=== PATIENT | female | born 1960 | race American Indian/Alaskan Native ===

== ENCOUNTER 2018-11-29 06:50 | Observation (INO) | payer MEDICAID, OTHER ==
--- NOTE | 2018-11-29 07:14 | EDM.PDOC ---
<Adina James - Last Filed: 11/29/18 10:08> ED HPI GENERAL MEDICAL PROBLEM - General Chief Complaint: Abdominal Pain Stated Complaint: AMBULANCE-UNKNOWN Time Seen by Provider: 11/29/18 07:00 Source of Information: Reports: Patient History Limitations: Reports: No Limitations - History of Present Illness INITIAL COMMENTS - FREE TEXT/NARRATIVE: Patient presents to ER with CC of generalized abdominal pain and left flank pain. Patient states that this pain began last night, "vomited all night". Patient reports history of cholecystectomy in 2016. Patient additionally reports that she last had a UTI "many years ago" and denies history of renal stones. Patient reports history of urinary frequency, dysuria, and only being able to void small amounts at a time, also reports feeling chilled at this time. Denies history of hematuria, fever at home. Onset Date: 11/28/18 Location: Reports: Abdomen (generalized throughout), Back (left flank pain) Quality: Reports: Sharp Severity: Severe Worsens with: Reports: Movement Associated Symptoms: Reports: Nausea/Vomiting Abdomen Pain Score (Numeric/FACES): 10 - Related Data Allergies Allergy/AdvReac Type Severity Reaction Status Date / Time dextrose [From Metamucil] Allergy Respiratory Verified 11/29/18 06:50 Distress psyllium husk Allergy Respiratory Verified 11/29/18 06:50 [From Metamucil] Distress psyllium seed Allergy Respiratory Verified 11/29/18 06:50 [From Metamucil] Distress sucrose [From Metamucil] Allergy Respiratory Verified 11/29/18 06:50 Distress Home Meds: Home Meds Cholecalciferol (Vitamin D3) [Vitamin D3] 1,000 units PO DAILY 12/28/13 [History ] Docusate Sodium [Colace] 50 mg PO DAILY 12/28/13 [History] traMADol [Ultram] 100 mg PO TID 12/28/13 [History] Gabapentin [Neurontin] 100 mg PO TID 08/27/15 [History] Past Medical History HEENT History: Reports: Impaired Vision Other HEENT History: wears glasses Cardiovascular History: Reports: None Respiratory History: Reports: None Gastrointestinal History: Reports: GERD Genitourinary History: Reports: None [employer]ACHINE History: Reports: None Musculoskeletal History: Reports: Back Pain, Chronic, Osteoarthritis Neurological History: Reports: None Psychiatric History: Reports: None Endocrine/Metabolic History: Reports: None Hematologic History: Reports: None Immunologic History: Reports: None Oncologic (Cancer) History: Reports: None Dermatologic History: Reports: None - Infectious Disease History Infectious Disease History: Reports: None - Past Surgical History Head Surgeries/Procedures: Reports: None Female Surgical History: Reports: Hysterectomy Other Female Surgeries/Procedures: bladder surgery Social & Family History - Family History Family Medical History: Noncontributory - Tobacco Use Smoking Status *Q: Never Smoker - Caffeine Use Caffeine Use: Reports: Coffee - Recreational Drug Use Recreational Drug Use: No - Living Situation & Occupation Living situation: Reports: , with Spouse ED ROS GENERAL - Review of Systems Review Of Systems: ROS reveals no pertinent complaints other than HPI. ED EXAM, RENAL/ - Physical Exam Exam: See Below Exam Limited By: No Limitations General Appearance: Alert, WD/WN, No Apparent Distress Throat/Mouth: Normal Inspection, Normal Lips, Normal Teeth, Normal Gums, Normal Oropharynx, Normal Voice, No Airway Compromise Head: Atraumatic, Normocephalic Neck: Normal Inspection, Supple, Non-Tender, Full Range of Motion Respiratory/Chest: No Respiratory Distress, Lungs Clear, Normal Breath Sounds, No Accessory Muscle Use, Chest Non-Tender Cardiovascular: Normal Peripheral Pulses, Regular Rate, Rhythm, No Edema, No Gallop, No JVD, No Murmur, No Rub GI/Abdominal: Normal Bowel Sounds, Soft, No Organomegaly, No Distention, No Abnormal Bruit, No Mass, Tender (tenderness to generalized abdomen with palpation ) Back Exam: Normal Inspection, Full Range of Motion, CVA Tenderness (L) Extremities: Normal Inspection, Normal Range of Motion, Non-Tender, Normal Capillary Refill, No Pedal Edema Neurological: Alert, Oriented, CN II-XII Intact, Normal Cognition, Normal Gait, Normal Reflexes, No Motor/Sensory Deficits Psychiatric: Anxious Skin Exam: Warm, Dry, Intact, Normal Color, No Rash Course - Vital Signs Last Recorded V/S: Last Vital Signs Temp 97.9 F 11/29/18 06:50 Pulse Resp 18 11/29/18 06:50 BP 120/63 11/29/18 06:50 Pulse Ox 99 11/29/18 06:50 - Orders/Labs/Meds Orders: Active Orders 24 hr Category Date Time Status EKG Documentation Completion [RC] URGENT Care 11/29/18 06:33 Inactive Abdomen Pelvis wo Cont [CT] Urgent Exams 11/29/18 08:57 Taken CULTURE BLOOD [BC] Stat Lab 11/29/18 06:55 Received CULTURE BLOOD [BC] Stat Lab 11/29/18 07:00 Received Blood Culture x2 Reflex Set [OM.PC] Stat Oth 11/29/18 06:33 Ordered Labs: Laboratory Tests 11/29/18 11/29/18 11/29/18 Range/Units 06:55 07:00 07:00 WBC 16.4 H (5.0-10.0) 10^3/uL RBC 5.62 H (4.2-5.4) 10^6/uL Hgb 17.1 H D (12.0-16.0) g/dL Hct 49.3 H (37.0-47.0) % MCV 87.7 (80-100) fL MCH 30.4 (27.0-34.0) pg MCHC 34.7 (33.0-35.0) g/dL Plt Count 302 (150-450) 10^3/uL Neut % (Auto) 91.3 H (42.2-75.2) % Lymph % (Auto) 6.0 L (20.5-50.1) % [place] % (Auto) 2.3 (2-8) % Eos % (Auto) 0.3 L (1.0-3.0) % Baso % (Auto) 0.1 (0.0-1.0) % Sodium 139 (135-145) mmol/L Potassium 3.6 (3.6-5.0) mmol/L Chloride 106 (101-111) mmol/L Carbon Dioxide 21.0 (21.0-31.0) mmol/L Anion Gap 15.6 BUN 18 (7-18) mg/dL Creatinine 0.6 (0.6-1.3) mg/dL Est Cr Clr Drug Dosing 94.51 mL/min Estimated GFR (MDRD) > 60 BUN/Creatinine Ratio 30.00 Glucose 160 H (74-105) mg/dL Lactic Acid 1.2 (0.5-2.2) mmol/L Calcium 10.2 (8.4-10.2) mg/dl Total Bilirubin 1.0 (0.2-1.0) mg/dL AST 48 H (10-42) IU/L ALT 52 (10-60) IU/L Alkaline Phosphatase 91 (42-121) IU/L Troponin I < 0.02 (0.00-0.02) ng/ml Total Protein 9.0 H (6.7-8.2) g/dl Albumin 5.1 (3.2-5.5) g/dl Globulin 3.9 Albumin/Globulin Ratio 1.31 Amylase 62 (28-100) U/L Lipase 34 (22-51) U/L Urine Color (YELLOW) Urine Appearance (CLEAR) Urine pH (5.0-9.0) Ur Specific [place] (1.005-1.030) Urine Protein (NEGATIVE) Urine Glucose (UA) (NEGATIVE) Urine Ketones (NEGATIVE) Urine Occult Blood (NEGATIVE) Urine Nitrite (NEGATIVE) Urine Bilirubin (NEGATIVE) Urine Urobilinogen (0.2-1.0) mg/dL Ur Leukocyte Esterase (NEGATIVE) Urine RBC /HPF Urine WBC (0-5/HPF) /HPF Ur Epithelial Cells (NOT SEEN) /HPF Amorphous Sediment (NOT SEEN) /HPF Urine Bacteria (0-FEW/HPF) /HPF Hyaline Casts (NOT SEEN) /LPF Urine Mucus (NOT SEEN) /LPF Urine Opiates Screen (NEGATIVE) Ur Oxycodone Screen (NEGATIVE) Urine Methadone Screen (NEGATIVE) Ur Barbiturates Screen (NEGATIVE) U Tricyclic Antidepress (NEGATIVE) Ur Phencyclidine Scrn (NEGATIVE) Ur Amphetamine Screen (NEGATIVE) U Methamphetamines Scrn (NEGATIVE) Urine MDMA Screen (NEGATIVE) U Benzodiazepines Scrn (NEGATIVE) Urine Cocaine Screen (NEGATIVE) U Marijuana (THC) Screen (NEGATIVE) 11/29/18 11/29/18 Range/Units 08:19 08:19 WBC (5.0-10.0) 10^3/uL RBC (4.2-5.4) 10^6/uL Hgb (12.0-16.0) g/dL Hct (37.0-47.0) % MCV (80-100) fL MCH (27.0-34.0) pg MCHC (33.0-35.0) g/dL Plt Count (150-450) 10^3/uL Neut % (Auto) (42.2-75.2) % Lymph % (Auto) (20.5-50.1) % [place] % (Auto) (2-8) % Eos % (Auto) (1.0-3.0) % Baso % (Auto) (0.0-1.0) % Sodium (135-145) mmol/L Potassium (3.6-5.0) mmol/L Chloride (101-111) mmol/L Carbon Dioxide (21.0-31.0) mmol/L Anion Gap BUN (7-18) mg/dL Creatinine (0.6-1.3) mg/dL Est Cr Clr Drug Dosing mL/min Estimated GFR (MDRD) BUN/Creatinine Ratio Glucose (74-105) mg/dL Lactic Acid (0.5-2.2) mmol/L Calcium (8.4-10.2) mg/dl Total Bilirubin (0.2-1.0) mg/dL AST (10-42) IU/L ALT (10-60) IU/L Alkaline Phosphatase (42-121) IU/L Troponin I (0.00-0.02) ng/ml Total Protein (6.7-8.2) g/dl Albumin (3.2-5.5) g/dl Globulin Albumin/Globulin Ratio Amylase (28-100) U/L Lipase (22-51) U/L Urine Color Dark yellow (YELLOW) Urine Appearance Cloudy (CLEAR) Urine pH 6.0 (5.0-9.0) Ur Specific [place] 1.025 (1.005-1.030) Urine Protein 100 H (NEGATIVE) Urine Glucose (UA) Negative (NEGATIVE) Urine Ketones >=160 H (NEGATIVE) Urine Occult Blood Moderate H (NEGATIVE) Urine Nitrite Negative (NEGATIVE) Urine Bilirubin Small H (NEGATIVE) Urine Urobilinogen 0.2 (0.2-1.0) mg/dL Ur Leukocyte Esterase Negative (NEGATIVE) Urine RBC 50-75 H /HPF Urine WBC 0-5 (0-5/HPF) /HPF Ur Epithelial Cells Moderate H (NOT SEEN) /HPF Amorphous Sediment Few (NOT SEEN) /HPF Urine Bacteria Rare (0-FEW/HPF) /HPF Hyaline Casts Rare H (NOT SEEN) /LPF Urine Mucus Many H (NOT SEEN) /LPF Urine Opiates Screen Negative (NEGATIVE) Ur Oxycodone Screen Negative (NEGATIVE) Urine Methadone Screen Negative (NEGATIVE) Ur Barbiturates Screen Negative (NEGATIVE) U Tricyclic Antidepress Negative (NEGATIVE) Ur Phencyclidine Scrn Negative (NEGATIVE) Ur Amphetamine Screen Negative (NEGATIVE) U Methamphetamines Scrn Negative (NEGATIVE) Urine MDMA Screen Negative (NEGATIVE) U Benzodiazepines Scrn Negative (NEGATIVE) Urine Cocaine Screen Negative (NEGATIVE) U Marijuana (THC) Screen Negative (NEGATIVE) Meds: Medications Discontinued Medications Generic Name Dose Route Start Last Admin Trade Name Freq PRN Reason Stop Dose Admin Famotidine 20 mg 11/29/18 07:15 11/29/18 07:19 Pepcid IVPUSH 11/29/18 07:16 20 mg ONETIME ONE Administration Hydromorphone HCl 1 mg 11/29/18 08:36 11/29/18 10:09 Dilaudid IVPUSH 11/29/18 08:37 1 mg ONETIME ONE Administration Sodium Chloride 1,000 mls @ 999 mls/hr 11/29/18 07:19 11/29/18 07:21 Normal Saline IV 11/29/18 08:19 999 mls/hr .BOLUS ONE Administration Ketorolac Tromethamine 30 mg 11/29/18 07:15 11/29/18 07:19 Toradol IVPUSH 11/29/18 07:16 30 mg ONETIME ONE Administration - Re-Assessments/Exams Free Text/Narrative Re-Assessment/Exam: Patient experienced no active vomiting throughout ER course, no NG tube was placed. Patient has remained NPO throughout ER visit. Dr. Cardoza consulted on this patient's case, willing to consult on patient case. Accepting hospitalist, Dr. Rivera, is aware of patient microscopic hematuria. Departure - Departure Time of Disposition: 10:08 Disposition: Admitted As Inpatient 65 Condition: Good Clinical Impression: Partial small bowel obstruction Hematuria Qualifiers: Hematuria type: asymptomatic microscopic Qualified Code(s): R31.21 - Asymptomatic microscopic hematuria - Discharge Information *PRESCRIPTION DRUG MONITORING PROGRAM REVIEWED*: No *COPY OF PRESCRIPTION DRUG MONITORING REPORT IN PATIENT VELASQUEZ: No Instructions: Small Bowel Obstruction, [id number] Forms: ED Department Discharge <Td Dawson - Last Filed: 11/29/18 10:18> Course - Re-Assessments/Exams Free Text/Narrative Re-Assessment/Exam: 11/29/18 09:04 I personally performed or re-performed the physical examination and medical decision making. I have verified all student documentation or findings, including history, physical exam and/or medical decision making. Departure - Departure Time of Disposition: 10:18 (admitted to Dr. Rivera)
[2018-11-29] MEDS ORDERED: Famotidine 20 MG/2 ML SDV IVPUSH ONE (07:15)
[2018-11-29] MEDS ORDERED: Ketorolac 30 MG/ML SDV IVPUSH ONE (07:15)
[2018-11-29] MEDS ORDERED: Sodium Chloride 0.9% 1,000 ML IV ONE (07:19)
[2018-11-29 07:28] LABS: ANION GAP 15.6; CHLORIDE,CL 106 mmol/L (101-111); SODIUM,NA 139 mmol/L (135-145)
[2018-11-29] MEDS ORDERED: HYDROmorphone 1 MG/ML Syringe IVPUSH ONE (08:36)
[2018-11-29] MEDS ORDERED: Sodium Chloride 0.9% 10 ML Syringe FLUSH PRN ×2 (10:42)
[2018-11-29] MEDS ORDERED: Ondansetron 4 MG/2 ML SDV IV PRN (10:45)
--- NOTE | 2018-11-29 11:11 | PCM.HP ---
H&P History of Present Illness - General Date of Service: 11/29/18 Admit Problem/Dx: Admission Diagnosis/Problem Admission Diagnosis/Problem Small bowel obstruction Source of Information: Patient History Limitations: Reports: No Limitations - History of Present Illness Initial Comments - Free Text/Narative: 58 yo F who p/w abdominal pain, nausea and vomiting. Abdominal pain started at about 8 pm last night, 8/10 intensity, colicky, intermittent, diffuse over whole abdomen with radiation into back. Associated with several episodes of nausea and vomiting. Hx of cholecystectomy in the past. In the ED, CT abd showed SBO. Abdomen Pain Score (Numeric/FACES): 10 - Related Data Allergies/Adverse Reactions: Allergies Allergy/AdvReac Type Severity Reaction Status Date / Time dextrose [From Metamucil] Allergy Respiratory Verified 11/29/18 10:53 Distress psyllium husk Allergy Respiratory Verified 11/29/18 10:53 [From Metamucil] Distress psyllium seed Allergy Respiratory Verified 11/29/18 10:53 [From Metamucil] Distress sucrose [From Metamucil] Allergy Respiratory Verified 11/29/18 10:53 Distress Home Medications: Home Meds Cholecalciferol (Vitamin D3) [Vitamin D3] 1,000 units PO DAILY 12/28/13 [History ] Docusate Sodium [Colace] 50 mg PO DAILY 12/28/13 [History] traMADol [Ultram] 100 mg PO TID 12/28/13 [History] Acetaminophen 325 mg PO Q4H PRN 11/29/18 [History] Past Medical History HEENT History: Reports: Impaired Vision Other HEENT History: wears glasses Cardiovascular History: Reports: None Respiratory History: Reports: None Gastrointestinal History: Reports: GERD Genitourinary History: Reports: None [employer] 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 Musculoskeletal History: Reports: Back Pain, Chronic, Osteoarthritis Neurological History: Reports: None Psychiatric History: Reports: None Endocrine/Metabolic History: Reports: None Hematologic History: Reports: None Immunologic History: Reports: None Oncologic (Cancer) History: Reports: None Dermatologic History: Reports: None - Infectious Disease History Infectious Disease History: Reports: None - Past Surgical History Head Surgeries/Procedures: Reports: None HEENT Surgical History: Reports: None Cardiovascular Surgical History: Reports: None Respiratory Surgical History: Reports: None GI Surgical History: Reports: Cholecystectomy Female Surgical History: Reports: Hysterectomy Other Female Surgeries/Procedures: bladder surgery Neurological Surgical History: Reports: None Musculoskeletal Surgical History: Reports: None Social & Family History - Family History Family Medical History: Noncontributory - Tobacco Use Smoking Status *Q: Never Smoker - Caffeine Use Caffeine Use: Reports: Coffee - Recreational Drug Use Recreational Drug Use: No - Living Situation & Occupation Living situation: Reports: , with Spouse H&P Review of Systems - Review of Systems: Review Of Systems: ROS reveals no pertinent complaints other than HPI. General: Denies: Fever HEENT: Reports: No Symptoms Pulmonary: Reports: No Symptoms Cardiovascular: Reports: No Symptoms Gastrointestinal: Reports: Abdominal Pain, Nausea, Vomiting Genitourinary: Reports: No Symptoms Musculoskeletal: Reports: No Symptoms Skin: Reports: No Symptoms Psychiatric: Reports: No Symptoms Neurological: Reports: No Symptoms Exam - Exam Exam: See Below - Vital Signs Vital Signs: Last Vital Signs Temp 37.5 C 11/29/18 10:29 Pulse 88 11/29/18 10:29 Resp 20 11/29/18 10:29 BP 127/71 11/29/18 10:29 Pulse Ox 97 11/29/18 10:29 Weight: 75.387 kg - Exam General: Alert, Oriented HEENT: Conjunctiva Clear Neck: Supple, Trachea Midline Lungs: Clear to Auscultation Cardiovascular: Regular Rate, Regular Rhythm GI/Abdominal Exam: Tender, Other (hypoactive bowel sounds, diffusely tender abdomen) Extremities: Normal Inspection, Normal Range of Motion Neuro Extensive - Mental Status: Alert, Oriented x3, Normal Mood/Affect - Patient Data Lab Results Last 24 hrs: Laboratory Results - last 24 hr 11/29/18 11/29/18 11/29/18 Range/Units 06:55 07:00 07:00 WBC 16.4 H (5.0-10.0) 10^3/uL RBC 5.62 H (4.2-5.4) 10^6/uL Hgb 17.1 H D (12.0-16.0) g/dL Hct 49.3 H (37.0-47.0) % MCV 87.7 (80-100) fL MCH 30.4 (27.0-34.0) pg MCHC 34.7 (33.0-35.0) g/dL Plt Count 302 (150-450) 10^3/uL Neut % (Auto) 91.3 H (42.2-75.2) % Lymph % (Auto) 6.0 L (20.5-50.1) % [place] % (Auto) 2.3 (2-8) % Eos % (Auto) 0.3 L (1.0-3.0) % Baso % (Auto) 0.1 (0.0-1.0) % Sodium 139 (135-145) mmol/L Potassium 3.6 (3.6-5.0) mmol/L Chloride 106 (101-111) mmol/L Carbon Dioxide 21.0 (21.0-31.0) mmol/L Anion Gap 15.6 BUN 18 (7-18) mg/dL Creatinine 0.6 (0.6-1.3) mg/dL Est Cr Clr Drug Dosing 94.51 mL/min Estimated GFR (MDRD) > 60 BUN/Creatinine Ratio 30.00 Glucose 160 H (74-105) mg/dL Lactic Acid 1.2 (0.5-2.2) mmol/L Calcium 10.2 (8.4-10.2) mg/dl Total Bilirubin 1.0 (0.2-1.0) mg/dL AST 48 H (10-42) IU/L ALT 52 (10-60) IU/L Alkaline Phosphatase 91 (42-121) IU/L Troponin I < 0.02 (0.00-0.02) ng/ml Total Protein 9.0 H (6.7-8.2) g/dl Albumin 5.1 (3.2-5.5) g/dl Globulin 3.9 Albumin/Globulin Ratio 1.31 Amylase 62 (28-100) U/L Lipase 34 (22-51) U/L Urine Color (YELLOW) Urine Appearance (CLEAR) Urine pH (5.0-9.0) Ur Specific [place] (1.005-1.030) Urine Protein (NEGATIVE) Urine Glucose (UA) (NEGATIVE) Urine Ketones (NEGATIVE) Urine Occult Blood (NEGATIVE) Urine Nitrite (NEGATIVE) Urine Bilirubin (NEGATIVE) Urine Urobilinogen (0.2-1.0) mg/dL Ur Leukocyte Esterase (NEGATIVE) Urine RBC /HPF Urine WBC (0-5/HPF) /HPF Ur Epithelial Cells (NOT SEEN) /HPF Amorphous Sediment (NOT SEEN) /HPF Urine Bacteria (0-FEW/HPF) /HPF Hyaline Casts (NOT SEEN) /LPF Urine Mucus (NOT SEEN) /LPF Urine Opiates Screen (NEGATIVE) Ur Oxycodone Screen (NEGATIVE) Urine Methadone Screen (NEGATIVE) Ur Barbiturates Screen (NEGATIVE) U Tricyclic Antidepress (NEGATIVE) Ur Phencyclidine Scrn (NEGATIVE) Ur Amphetamine Screen (NEGATIVE) U Methamphetamines Scrn (NEGATIVE) Urine MDMA Screen (NEGATIVE) U Benzodiazepines Scrn (NEGATIVE) Urine Cocaine Screen (NEGATIVE) U Marijuana (THC) Screen (NEGATIVE) 11/29/18 11/29/18 Range/Units 08:19 08:19 WBC (5.0-10.0) 10^3/uL RBC (4.2-5.4) 10^6/uL Hgb (12.0-16.0) g/dL Hct (37.0-47.0) % MCV (80-100) fL MCH (27.0-34.0) pg MCHC (33.0-35.0) g/dL Plt Count (150-450) 10^3/uL Neut % (Auto) (42.2-75.2) % Lymph % (Auto) (20.5-50.1) % [place] % (Auto) (2-8) % Eos % (Auto) (1.0-3.0) % Baso % (Auto) (0.0-1.0) % Sodium (135-145) mmol/L Potassium (3.6-5.0) mmol/L Chloride (101-111) mmol/L Carbon Dioxide (21.0-31.0) mmol/L Anion Gap BUN (7-18) mg/dL Creatinine (0.6-1.3) mg/dL Est Cr Clr Drug Dosing mL/min Estimated GFR (MDRD) BUN/Creatinine Ratio Glucose (74-105) mg/dL Lactic Acid (0.5-2.2) mmol/L Calcium (8.4-10.2) mg/dl Total Bilirubin (0.2-1.0) mg/dL AST (10-42) IU/L ALT (10-60) IU/L Alkaline Phosphatase (42-121) IU/L Troponin I (0.00-0.02) ng/ml Total Protein (6.7-8.2) g/dl Albumin (3.2-5.5) g/dl Globulin Albumin/Globulin Ratio Amylase (28-100) U/L Lipase (22-51) U/L Urine Color Dark yellow (YELLOW) Urine Appearance Cloudy (CLEAR) Urine pH 6.0 (5.0-9.0) Ur Specific [place] 1.025 (1.005-1.030) Urine Protein 100 H (NEGATIVE) Urine Glucose (UA) Negative (NEGATIVE) Urine Ketones >=160 H (NEGATIVE) Urine Occult Blood Moderate H (NEGATIVE) Urine Nitrite Negative (NEGATIVE) Urine Bilirubin Small H (NEGATIVE) Urine Urobilinogen 0.2 (0.2-1.0) mg/dL Ur Leukocyte Esterase Negative (NEGATIVE) Urine RBC 50-75 H /HPF Urine WBC 0-5 (0-5/HPF) /HPF Ur Epithelial Cells Moderate H (NOT SEEN) /HPF Amorphous Sediment Few (NOT SEEN) /HPF Urine Bacteria Rare (0-FEW/HPF) /HPF Hyaline Casts Rare H (NOT SEEN) /LPF Urine Mucus Many H (NOT SEEN) /LPF Urine Opiates Screen Negative (NEGATIVE) Ur Oxycodone Screen Negative (NEGATIVE) Urine Methadone Screen Negative (NEGATIVE) Ur Barbiturates Screen Negative (NEGATIVE) U Tricyclic Antidepress Negative (NEGATIVE) Ur Phencyclidine Scrn Negative (NEGATIVE) Ur Amphetamine Screen Negative (NEGATIVE) U Methamphetamines Scrn Negative (NEGATIVE) Urine MDMA Screen Negative (NEGATIVE) U Benzodiazepines Scrn Negative (NEGATIVE) Urine Cocaine Screen Negative (NEGATIVE) U Marijuana (THC) Screen Negative (NEGATIVE) Result Diagrams: 11/29/18 07:00 11/29/18 07:00 Ciaran Results Last 24 hrs: Microbiology 11/29/18 07:10 Stool Occult Blood (CIARAN) - Final Stool / Feces NEGATIVE OCCULT BLOOD REFERENCE RANGE: NEGATIVE Problem List Initiated/Reviewed/Updated: Yes Orders Last 24hrs: Active Orders 24 hr Category Date Time Status Patient Status [ADT] Routine ADT 11/29/18 10:43 Active Ambulate [RC] ASDIRECTED Care 11/29/18 10:43 Active EKG Documentation Completion [RC] URGENT Care 11/29/18 06:33 Inactive Height and Weight [RC] DAILY Care 11/29/18 10:43 Active Oxygen Therapy [RC] PRN Care 11/29/18 10:43 Active Peripheral IV Care [RC] . DIRECTED Care 11/29/18 10:43 Active Up With Assistance [RC] ASDIRECTED Care 11/29/18 10:43 Active VTE/DVT Education [RC] PER UNIT ROUTINE Care 11/29/18 10:43 Active Vital Signs [RC] Q4H Care 11/29/18 10:43 Active Nothing per Oral Now Diet [DIET] Diet 11/29/18 Lunch Active Abdomen Pelvis wo Cont [CT] Urgent Exams 11/29/18 08:57 Taken BASIC METABOLIC PANEL,BMP [CHEM] AM Lab 11/30/18 05:11 Ordered BASIC METABOLIC PANEL,BMP [CHEM] AM Lab 12/01/18 05:11 Ordered BASIC METABOLIC PANEL,BMP [CHEM] AM Lab 12/02/18 05:11 Ordered CBC W/O DIFF,HEMOGRAM [HEME] AM Lab 11/30/18 05:11 Ordered CBC W/O DIFF,HEMOGRAM [HEME] AM Lab 12/01/18 05:11 Ordered CBC W/O DIFF,HEMOGRAM [HEME] AM Lab 12/02/18 05:11 Ordered CULTURE BLOOD [BC] Stat Lab 11/29/18 06:55 Received CULTURE BLOOD [BC] Stat Lab 11/29/18 07:00 Received MAGNESIUM [CHEM] AM Lab 11/30/18 05:11 Ordered MAGNESIUM [CHEM] AM Lab 12/01/18 05:11 Ordered MAGNESIUM [CHEM] AM Lab 12/02/18 05:11 Ordered PHOSPHORUS [CHEM] AM Lab 11/30/18 05:11 Ordered PHOSPHORUS [CHEM] AM Lab 12/01/18 05:11 Ordered PHOSPHORUS [CHEM] AM Lab 12/02/18 05:11 Ordered Enoxaparin [Lovenox] Med 11/29/18 11:15 Ordered 40 mg SUBCUT DAILY Ondansetron [Zofran] Med 11/29/18 10:45 Active 4 mg IV Q4H PRN Sodium Chloride 0.9% [Normal Saline] 1,000 ml Med 11/29/18 10:45 Active IV ASDIRECTED Sodium Chloride 0.9% [Saline Flush] Med 11/29/18 10:42 Active 10 ml FLUSH ASDIRECTED PRN fentaNYL [Sublimaze] Med 11/29/18 10:44 Active 25 mcg IVPUSH Q1H PRN Blood Culture x2 Reflex Set [OM.PC] Stat Oth 11/29/18 06:33 Ordered NG [Nasogastric Orogastric Tube Insertion] [OM.PC] Oth 11/29/18 11:06 Ordered Routine Peripheral IV Insertion Adult [OM.PC] Routine Oth 11/29/18 10:43 Ordered Saline Lock Insert [OM.PC] Routine Oth 11/29/18 10:43 Ordered Resuscitation Status Routine Resus Stat 11/29/18 10:42 Ordered Medication Orders Enoxaparin Sodium (Lovenox) 40 mg SUBCUT DAILY HARDEEP Fentanyl (Sublimaze) 25 mcg IVPUSH Q1H PRN PRN Reason: Abdominal Pain Sodium Chloride (Normal Saline) 1,000 mls @ 100 mls/hr IV ASDIRECTED HARDEEP Ondansetron HCl (Zofran) 4 mg IV Q4H PRN PRN Reason: Nausea/Vomiting Sodium Chloride (Saline Flush) 10 ml FLUSH ASDIRECTED PRN PRN Reason: Keep Vein Open Assessment/Plan Comment:: #SBO NPO IV fluids Place NG tube Monitor electrolytes and replenish as needed #DVT ppx SC lovenox
[2018-11-29] MEDS: Sodium Chloride 0.9% 1,000 ML IV SCH (12:37)
[2018-11-29] MEDS: Enoxaparin 40 MG/0.4 ML Syringe SUBCUT SCH (12:38)
[2018-11-29] MEDS ORDERED: Acetaminophen 650 MG Supp RECTAL PRN (16:01)
[2018-11-29] MEDS: fentaNYL 100 MCG/2 ML SDV IVPUSH PRN ×2 (16:14→19:34)
[2018-11-29] MEDS ORDERED: metroNIDAZOLE/Normal Saline 500 MG in Premix Bag 100 BAG IV SCH (16:15)
[2018-11-29] MEDS: Nicotine 14 MG/24 Hr Patch TRDERM SCH (16:19)
[2018-11-29] MEDS ORDERED: cefTRIAXone 1 GM in Sodium Chloride 0.9% 50 ML IV SCH (17:00)
[2018-11-29] MEDS: metroNIDAZOLE/Normal Saline 500 MG in Premix Bag 1 BAG IV SCH (21:43)
[2018-11-30] MEDS: fentaNYL 100 MCG/2 ML SDV IVPUSH PRN ×3 (00:14→08:45)
[2018-11-30] MEDS: Sodium Chloride 0.9% 1,000 ML IV SCH ×2 (00:18→10:53)
[2018-11-30] MEDS: metroNIDAZOLE/Normal Saline 500 MG in Premix Bag 1 BAG IV SCH (05:41)
[2018-11-30 07:07] LABS: CHLORIDE,CL 112 mmol/L (101-111); SODIUM,NA 144 mmol/L (135-145)
[2018-11-30 07:55] VITALS: BP 122/65
[2018-11-30] MEDS: Enoxaparin 40 MG/0.4 ML Syringe SUBCUT SCH (08:45)
[2018-11-30] MEDS: Nicotine 14 MG/24 Hr Patch TRDERM SCH (08:47)
== END 2018-11-30 11:15 | disposition left against medical advice (07) ==
LOC: DL.ED 06:50 → DL.MS 10:21 → UNDOADMOB 10:21 → DL.MS 10:43
PROVIDERS: ADMIT Hospitalist; ATTEND Internal Medicine
DX: K56.609 Unspecified intestinal obstruction, unspecified as to partial versus complete obstruction (principal); K57.10 Diverticulosis of small intestine without perforation or abscess without bleeding; K21.9 Gastro-esophageal reflux disease without esophagitis; Z88.8 Allergy status to other drugs, medicaments and biological substances; Z90.49 Acquired absence of other specified parts of digestive tract; Z79.899 Other long term (current) drug therapy
CPT/HCPCS: 36415; 51701; 74176; 80048; 80053; 80305-QW; 81001; 82150; 82272; 83605; 83690; 83735; 84100; 84484; 85025; 85027; 87040; 96361; 96365; 96367; 96372; 96374; 96375; 96376; 99285-25; A4217; A9270-GY; G0378; J0696; J1170; J1650; J1885; J3010; J3490; J7030; J7050

== ENCOUNTER 2019-04-30 08:38 | Emergency (ER) | payer MEDICAID ==
[2019-04-30 08:48] VITALS: BP 133/67; PULSE 71
--- NOTE | 2019-04-30 09:01 | EDM.PDOC ---
ED HPI GENERAL MEDICAL PROBLEM - General Chief Complaint: Abdominal Pain Stated Complaint: BACK PAIN Time Seen by Provider: 04/30/19 09:00 Source of Information: Reports: Patient, Old Records, RN, RN Notes Reviewed History Limitations: Reports: No Limitations - History of Present Illness INITIAL COMMENTS - FREE TEXT/NARRATIVE: Pt presents to ER from home by POV with c/o abdominal and back pain. Pt states the abdominal pain started yesterday. She denies fever or chills. She has pain in the upper abdomen that radiates through to the back. Pt states she has chronic back pain. She rates the stomach pain 12/27. She took Tylenol at 0500HRS without relief. Pt denies diarrhea or vomiting. She was admitted to the hospital with bowel obstruction in November 2018. Onset: Gradual Onset Date: 04/29/19 Duration: Constant, Getting Worse Location: Reports: Abdomen, Back Quality: Reports: Ache Severity: Moderate Improves with: Reports: None Worsens with: Reports: Eating Associated Symptoms: Reports: No Other Symptoms Treatments REGIONAL DIRECTOR: Reports: Acetaminophen Abdominal Pain Score (Numeric/FACES): 7 - Related Data Allergies Allergy/AdvReac Type Severity Reaction Status Date / Time dextrose [From Metamucil] Allergy Respiratory Verified 04/30/19 08:48 Distress psyllium husk Allergy Respiratory Verified 04/30/19 08:48 [From Metamucil] Distress psyllium seed Allergy Respiratory Verified 04/30/19 08:48 [From Metamucil] Distress sucrose [From Metamucil] Allergy Respiratory Verified 04/30/19 08:48 Distress Home Meds: Home Meds Cholecalciferol (Vitamin D3) [Vitamin D3] 1,000 units PO DAILY 12/28/13 [History ] Docusate Sodium [Colace] 50 mg PO DAILY 12/28/13 [History] traMADol [Ultram] 100 mg PO TID 12/28/13 [History] Acetaminophen 650 mg PO Q4H PRN 11/29/18 [History] Diclofenac Sodium [Voltaren 1% Gel] 1 dose TRDERM ASDIRECTED PRN 04/30/19 [ History] Omeprazole 20 mg PO DAILY 04/30/19 [History] Past Medical History HEENT History: Reports: Impaired Vision Other HEENT History: wears glasses Cardiovascular History: Reports: None Respiratory History: Reports: None Gastrointestinal History: Reports: Bowel Obstruction, GERD Genitourinary History: Reports: None STOCK LAYER History: Reports: None Musculoskeletal History: Reports: Back Pain, Chronic, Osteoarthritis Neurological History: Reports: None Psychiatric History: Reports: None Endocrine/Metabolic History: Reports: None Hematologic History: Reports: None Immunologic History: Reports: None Oncologic (Cancer) History: Reports: None Dermatologic History: Reports: None - Infectious Disease History Infectious Disease History: Reports: None - Past Surgical History Head Surgeries/Procedures: Reports: None HEENT Surgical History: Reports: None Cardiovascular Surgical History: Reports: None Respiratory Surgical History: Reports: None GI Surgical History: Reports: Cholecystectomy Female Surgical History: Reports: Hysterectomy Other Female Surgeries/Procedures: bladder surgery Neurological Surgical History: Reports: None Musculoskeletal Surgical History: Reports: None Social & Family History - Family History Family Medical History: Noncontributory - Tobacco Use Smoking Status *Q: Current Every Day Smoker Tobacco Use Within Last Twelve Months: Cigarettes Years of Tobacco use: 18 Packs/Tins Daily: 0.5 Second Hand Smoke Exposure: No - Caffeine Use Caffeine Use: Reports: Coffee, Tea - Recreational Drug Use Recreational Drug Use: No - Living Situation & Occupation Living situation: Reports: , with Spouse Occupation: Employed ED ROS GENERAL - Review of Systems Review Of Systems: ROS reveals no pertinent complaints other than HPI. ED EXAM, GI/ABD - Physical Exam Exam: See Below Exam Limited By: No Limitations General Appearance: Alert, No Apparent Distress Eyes: Bilateral: Normal Appearance (No scleral icterus) Nose: Normal Inspection, Normal Mucosa, No Blood Throat/Mouth: Normal Inspection, Normal Lips, Normal Teeth, Normal Gums, Normal Oropharynx, Normal Voice, No Airway Compromise Head: Atraumatic, Normocephalic Neck: Normal Inspection, Supple, Non-Tender, Full Range of Motion Respiratory/Chest: No Respiratory Distress, Lungs Clear, Normal Breath Sounds, No Accessory Muscle Use, Chest Non-Tender Cardiovascular: Normal Peripheral Pulses, Regular Rate, Rhythm, No Edema, No JVD , No Murmur GI/Abdominal Exam: Normal Bowel Sounds, Soft, No Distention, No Abnormal Bruit, No Mass, Tender (Generalized abdominal tenderness, worse at the epigastric region). No: Guarding, Rigid, Rebound (Female) Exam: Deferred Rectal (Female) Exam: Deferred Back Exam: Full Range of Motion, Paraspinal Tenderness (Thoracic). No: CVA Tenderness (L), CVA Tenderness (R), Vertebral Tenderness Extremities: Normal Inspection, Normal Range of Motion, Non-Tender, No Pedal Edema, Normal Capillary Refill Neurological: Alert, Oriented, Normal Cognition, Normal Gait, No Motor/Sensory Deficits Psychiatric: Normal Mood Skin Exam: Warm, Dry, Intact, Normal Color, No Rash Course - Vital Signs Last Recorded V/S: Last Vital Signs Temp 98.1 F 04/30/19 08:44 Pulse 71 04/30/19 08:44 Resp 20 04/30/19 08:44 BP 133/67 04/30/19 08:44 Pulse Ox 99 04/30/19 08:44 - Orders/Labs/Meds Orders: Active Orders 24 hr Category Date Time Status Peripheral IV Care [RC] . DIRECTED Care 04/30/19 09:08 Active Abdomen Pelvis wo Cont [CT] Urgent Exams 04/30/19 09:54 Taken CULTURE URINE [RM] Stat Lab 04/30/19 09:37 Received Sodium Chloride 0.9% [Saline Flush] Med 04/30/19 09:07 Active 10 ml FLUSH ASDIRECTED PRN Peripheral IV Insertion Adult [OM.PC] Stat Oth 04/30/19 09:07 Ordered Medication Orders Sodium Chloride (Saline Flush) 10 ml FLUSH ASDIRECTED PRN PRN Reason: Keep Vein Open Last Admin: 04/30/19 10:22 Dose: 10 ml Labs: Laboratory Tests 04/30/19 04/30/19 04/30/19 Range/Units 09:15 09:15 09:37 WBC 8.0 (5.0-10.0) 10^3/uL RBC 4.59 (4.2-5.4) 10^6/uL Hgb 13.8 (12.0-16.0) g/dL Hct 41.0 (37.0-47.0) % MCV 89.3 (80-100) fL MCH 30.1 (27.0-34.0) pg MCHC 33.7 (33.0-35.0) g/dL Plt Count 228 (150-450) 10^3/uL Neut % (Auto) 52.9 (42.2-75.2) % Lymph % (Auto) 37.3 (20.5-50.1) % Mckean % (Auto) 7.5 (2-8) % Eos % (Auto) 2.1 (1.0-3.0) % Baso % (Auto) 0.2 (0.0-1.0) % Sodium 140 (135-145) mmol/L Potassium 3.8 (3.6-5.0) mmol/L Chloride 107 (101-111) mmol/L Carbon Dioxide 26.0 (21.0-31.0) mmol/L Anion Gap 10.8 BUN 12 (7-18) mg/dL Creatinine 0.5 L (0.6-1.3) mg/dL Est Cr Clr Drug Dosing 146.26 mL/min Estimated GFR (MDRD) > 60 BUN/Creatinine Ratio 24.00 Glucose 99 (74-105) mg/dL Calcium 8.9 (8.4-10.2) mg/dl Total Bilirubin 0.7 (0.2-1.0) mg/dL AST 17 (10-42) IU/L ALT 15 (10-60) IU/L Alkaline Phosphatase 66 (42-121) IU/L Total Protein 7.4 (6.7-8.2) g/dl Albumin 4.0 (3.2-5.5) g/dl Globulin 3.4 Albumin/Globulin Ratio 1.18 Amylase 59 (28-100) U/L Lipase 40 (22-51) U/L Urine Color Yellow (YELLOW) Urine Appearance Clear (CLEAR) Urine pH 6.5 (5.0-9.0) Ur Specific [place] 1.015 (1.005-1.030) Urine Protein Negative (NEGATIVE) Urine Glucose (UA) Negative (NEGATIVE) Urine Ketones Negative (NEGATIVE) Urine Occult Blood Moderate H (NEGATIVE) Urine Nitrite Negative (NEGATIVE) Urine Bilirubin Negative (NEGATIVE) Urine Urobilinogen 0.2 (0.2-1.0) mg/dL Ur Leukocyte Esterase Small H (NEGATIVE) Urine RBC 0-5 /HPF Urine WBC 0-5 (0-5/HPF) /HPF Ur Epithelial Cells Few (NOT SEEN) /HPF Urine Bacteria Rare (0-FEW/HPF) /HPF Urine Mucus Not seen (NOT SEEN) /LPF Meds: Medications Generic Name Dose Route Start Last Admin Trade Name Freq PRN Reason Stop Dose Admin Sodium Chloride 10 ml 04/30/19 09:07 04/30/19 10:22 Saline Flush FLUSH 10 ml ASDIRECTED PRN Administration Keep Vein Open Discontinued Medications Generic Name Dose Route Start Last Admin Trade Name Karanq PRN Reason Stop Dose Admin Al Hydroxide/Mg Hydroxide 30 ml 04/30/19 09:54 04/30/19 10:22 Gi Cocktail PO 04/30/19 09:55 30 ml ONETIME ONE Administration Famotidine 20 mg 04/30/19 09:53 04/30/19 10:22 Pepcid IVPUSH 04/30/19 09:54 20 mg ONETIME ONE Administration Magnesium Citrate 296 ml 04/30/19 10:39 Citrate Of Magnesia PO 04/30/19 10:40 ONETIME ONE - Radiology Interpretation Free Text/Narrative:: CT Abd/Pelvis: see Rad. report. Departure - Departure Time of Disposition: 10:53 Disposition: Home, Self-Care 01 Condition: Good Clinical Impression: Abdominal pain Qualifiers: Abdominal location: generalized Qualified Code(s): R10.84 - Generalized abdominal pain Constipation Qualifiers: Constipation type: other constipation type Qualified Code(s): K59.09 - Other constipation Hematuria Qualifiers: Hematuria type: asymptomatic microscopic Qualified Code(s): R31.21 - Asymptomatic microscopic hematuria - Discharge Information *PRESCRIPTION DRUG MONITORING PROGRAM REVIEWED*: No *COPY OF PRESCRIPTION DRUG MONITORING REPORT IN PATIENT VELASQUEZ: No Instructions: Abdominal Pain, Adult, Constipation, Adult, [id number], Hematuria, Adult Forms: ED Department Discharge Additional Instructions: Rx: Lactulose Syrup Follow up in clinic in 3 to 4 days for recheck of blood in urine. - My Orders Last 24 Hours: My Active Orders 04/30/19 09:07 Sodium Chloride 0.9% [Saline Flush] 10 ml FLUSH ASDIRECTED PRN Peripheral IV Insertion Adult [OM.PC] Stat 04/30/19 09:08 Peripheral IV Care [RC] . DIRECTED 04/30/19 09:37 CULTURE URINE [RM] Stat 04/30/19 09:54 Abdomen Pelvis wo Cont [CT] Urgent - Assessment/Plan Last 24 Hours: My Active Orders 04/30/19 09:07 Sodium Chloride 0.9% [Saline Flush] 10 ml FLUSH ASDIRECTED PRN Peripheral IV Insertion Adult [OM.PC] Stat 04/30/19 09:08 Peripheral IV Care [RC] . DIRECTED 04/30/19 09:37 CULTURE URINE [RM] Stat 04/30/19 09:54 Abdomen Pelvis wo Cont [CT] Urgent
[2019-04-30 09:42] LABS: ANION GAP 10.8; CHLORIDE,CL 107 mmol/L (101-111); SODIUM,NA 140 mmol/L (135-145)
[2019-04-30] MEDS: GI Cocktail Oral Solution 30 ML PO ONE (10:22)
[2019-04-30] MEDS: Sodium Chloride 0.9% 10 ML Syringe FLUSH PRN (10:22)
[2019-04-30] MEDS: Famotidine 20 MG/2 ML SDV IVPUSH ONE (10:22)
[2019-04-30] MEDS: Magnesium Citrate Solution 296 ML Bottle PO ONE (11:01)
--- NOTE | 2019-04-30 11:23 | CT ---
EXAMINATION: Abdomen Pelvis wo Cont SEX: Female AGE: 58 years CLINICAL HISTORY: 58-year-old 168 pound female smoker complaining of pain in abd/back (HEMATURIA). "Normal kidneys" reported on CT scan November 2018. SCAN TECHNIQUE: Volume acquisition of data from an emergency unenhanced CT scan abdomen and pelvis (kidneys/ureters/bladder) obtained with the patient lying supine on the Siemens multislice scanner [place], [place]. All data archived in the PACS system for storage, reformatting axial/sagittal/coronal planes and study. INTERPRETATION: 1. Cholecystectomy (clips RUQ). 2. Normal reniform size, axis and configuration. No sign of urolithiasis or obstructive uropathy, i.e., no calcifications in the pyelocalyceal either kidney, ureters, or urinary bladder. No renal cortical mass lesion. Unopacified urinary bladder inhomogeneously dense and recommend ultrasound this "smoker" with hematuria. (Tiny phlebolith pelvis on the left present on previous CT exam 29 November 2018). 3. Unenhanced liver, stomach, spleen, pancreas and adrenal glands unremarkable. 4. Atheromatous calcifications scattered across the course of normal caliber aortoiliac vessels. No aneurysm or dissection. 5. No inflammatory "dirty" peritoneal fat, signs of mechanical bowel obstruction, ascites or free intraperitoneal air. Normal appendix RLQ. 6. Multilevel lower lumbar L4-5 disc disease with reactive arthritic changes of the spine. 7. Normal cardiac silhouette. Lung bases clear. CONCLUSION: No sign of urolithiasis or obstructive uropathy. *Inhomogeneously dense urinary bladder. Ultrasound recommended. Cholecystectomy. Usual signs of senescence.
== END 2019-04-30 11:12 | disposition home or self-care (01) ==
LOC: DL.ED 08:38
DX: R10.84 Generalized abdominal pain (principal); K59.09 Other constipation; R31.21 Asymptomatic microscopic hematuria; K21.9 Gastro-esophageal reflux disease without esophagitis; F17.210 Nicotine dependence, cigarettes, uncomplicated; Z88.8 Allergy status to other drugs, medicaments and biological substances; Z79.899 Other long term (current) drug therapy
CPT/HCPCS: 36415; 74176; 80053; 81001; 82150; 83690; 85025; 87086; 87088; 87186; 96374; 99284; A9270; J3490

== ENCOUNTER 2019-06-20 10:16 | Emergency (ER) | payer MEDICAID ==
[2019-06-20 10:29] VITALS: BP 125/83; PULSE 88
[2019-06-20] MEDS ORDERED: Lidocaine 5% Oint 35.44 GM Tube TOP ONE (10:46)
[2019-06-20] MEDS ORDERED: traMADol 50 MG Tab PO ONE (10:46)
--- NOTE | 2019-06-20 10:49 | EDM.PDOC ---
Scribed by Shweta Collier 06/20/19 1040 for Td Dawson MD ED HPI GENERAL MEDICAL PROBLEM - General Chief Complaint: Back Pain or Injury Stated Complaint: BACK HURTS Time Seen by Provider: 06/20/19 10:31 Source of Information: Reports: Patient, RN, RN Notes Reviewed History Limitations: Reports: No Limitations - History of Present Illness INITIAL COMMENTS - FREE TEXT/NARRATIVE: Patient presents to ER with complaint of lower back pain, has seen providers for it, supposed to follow up again in the new year. She does not know if it is her stomach or her back hurt. She is on group home Tramadol from [facility]. They are closed this week. She can only get it filled for one week. She had a normal bowel movement. She denies fever, chills, nausea, vomiting or urinary symptoms. Onset: Gradual Duration: Getting Worse Location: Reports: Back Quality: Reports: Ache Severity: Moderate Improves with: Reports: None Worsens with: Reports: None Associated Symptoms: Reports: No Other Symptoms - Related Data Allergies Allergy/AdvReac Type Severity Reaction Status Date / Time dextrose [From Metamucil] Allergy Respiratory Verified 06/20/19 10:20 Distress psyllium husk Allergy Respiratory Verified 06/20/19 10:20 [From Metamucil] Distress psyllium seed Allergy Respiratory Verified 06/20/19 10:20 [From Metamucil] Distress sucrose [From Metamucil] Allergy Respiratory Verified 06/20/19 10:20 Distress Home Meds: Home Meds Cholecalciferol (Vitamin D3) [Vitamin D3] 1,000 units PO DAILY 12/28/13 [History ] Docusate Sodium [Colace] 50 mg PO DAILY 12/28/13 [History] traMADol [Ultram] 100 mg PO TID 12/28/13 [History] Acetaminophen 650 mg PO Q4H PRN 11/29/18 [History] Diclofenac Sodium [Voltaren 1% Gel] 1 dose TRDERM ASDIRECTED PRN 04/30/19 [ History] Omeprazole 20 mg PO DAILY 04/30/19 [History] Past Medical History HEENT History: Reports: Impaired Vision Other HEENT History: wears glasses Cardiovascular History: Reports: None Respiratory History: Reports: None Gastrointestinal History: Reports: Bowel Obstruction, GERD Genitourinary History: Reports: None ORTHOPEDIC DENTIST History: Reports: None Musculoskeletal History: Reports: Back Pain, Chronic, Osteoarthritis Neurological History: Reports: None Psychiatric History: Reports: None Endocrine/Metabolic History: Reports: None Hematologic History: Reports: None Immunologic History: Reports: None Oncologic (Cancer) History: Reports: None Dermatologic History: Reports: None - Infectious Disease History Infectious Disease History: Reports: None - Past Surgical History Head Surgeries/Procedures: Reports: None HEENT Surgical History: Reports: None Cardiovascular Surgical History: Reports: None Respiratory Surgical History: Reports: None GI Surgical History: Reports: Cholecystectomy Female Surgical History: Reports: Hysterectomy Other Female Surgeries/Procedures: bladder surgery Neurological Surgical History: Reports: None Musculoskeletal Surgical History: Reports: None Social & Family History - Family History Family Medical History: Noncontributory - Caffeine Use Caffeine Use: Reports: Coffee, Tea - Living Situation & Occupation Living situation: Reports: , with Spouse Occupation: Employed ED ROS GENERAL - Review of Systems Review Of Systems: Comprehensive ROS is negative, except as noted in HPI. ED EXAM,LOWER BACK PAIN/INJURY - Physical Exam Exam: See Below Exam Limited By: No Limitations General Appearance: Alert, WD/WN, No Apparent Distress Eye Exam: Bilateral Eye: EOMI, Normal Inspection, PERRL Ears: Normal External Exam, Normal Canal, Hearing Grossly Normal, Normal TMs Nose: Normal Inspection, Normal Mucosa, No Blood Throat/Mouth: Normal Inspection, Normal Lips, Normal Teeth, Normal Gums, Normal Oropharynx, Normal Voice, No Airway Compromise Head: Atraumatic, Normocephalic Neck: Normal Inspection, Supple, Non-Tender, Full Range of Motion Respiratory/Chest: No Respiratory Distress, Lungs Clear, Normal Breath Sounds, No Accessory Muscle Use, Chest Non-Tender Cardiovascular: Normal Peripheral Pulses, Regular Rate, Rhythm, No Edema, No Gallop, No JVD, No Murmur, No Rub GI/Abdominal: Normal Bowel Sounds, Soft, Non-Tender, No Organomegaly, No Distention, No Abnormal Bruit, No Mass (Female) Exam: Deferred Rectal (Female) Exam: Deferred Back Exam: Decreased Range of Motion (chronic/stable for many yrs per pt.), Paraspinal Tenderness (T & L spines), Other (No visible swelling, bruising, erythema, or focal clint tenderness). No: CVA Tenderness (L), CVA Tenderness (R ), Muscle Spasm Extremities: Normal Inspection, Normal Range of Motion, Non-Tender, No Pedal Edema, Normal Capillary Refill Neurological: Alert, Normal Mood/Affect, Normal Dorsiflexion, CN II-XII Intact, Normal Plantar Flexion, Normal Gait, No Motor/Sensory Deficits, Oriented x 3 Psychiatric: Normal Affect, Normal Mood Skin Exam: Warm, Dry, Intact, Normal Color, No Rash Lymphatic: No Adenopathy Course - Vital Signs Last Recorded V/S: Last Vital Signs Temp 98.1 F 06/20/19 10:23 Pulse 88 06/20/19 10:23 Resp 16 06/20/19 10:23 BP 125/83 06/20/19 10:23 Pulse Ox 98 06/20/19 10:23 - Orders/Labs/Meds Orders: Active Orders 24 hr Category Date Time Status UA W/MICROSCOPIC [URIN] Urgent Lab 06/20/19 10:23 Results Lidocaine 5% Med 06/20/19 10:46 Once 15 gm TOP ONETIME ONE traMADol [Ultram] Med 06/20/19 10:46 Once 100 mg PO ONETIME ONE Labs: Laboratory Tests 06/20/19 Range/Units 10:23 Urine Color Yellow (YELLOW) Urine Appearance Clear (CLEAR) Urine pH 6.5 (5.0-9.0) Ur Specific [place] <= 1.005 (1.005-1.030) Urine Protein Negative (NEGATIVE) Urine Glucose (UA) Negative (NEGATIVE) Urine Ketones Negative (NEGATIVE) Urine Occult Blood Moderate H (NEGATIVE) Urine Nitrite Negative (NEGATIVE) Urine Bilirubin Negative (NEGATIVE) Urine Urobilinogen 0.2 (0.2-1.0) mg/dL Ur Leukocyte Esterase Negative (NEGATIVE) Departure - Departure Time of Disposition: 10:47 Disposition: Home, Self-Care 01 Condition: Good Clinical Impression: Asymptomatic microscopic hematuria Chronic back pain Qualifiers: Back pain location: back pain in unspecified location Back pain laterality: midline Qualified Code(s): M54.9 - Dorsalgia, unspecified; G89.29 - Other chronic pain - Discharge Information *PRESCRIPTION DRUG MONITORING PROGRAM REVIEWED*: No *COPY OF PRESCRIPTION DRUG MONITORING REPORT IN PATIENT VELASQUEZ: No Instructions: What You Need to Know About Chronic Back Pain, Hematuria, Adult Forms: ED Department Discharge Additional Instructions: Rx: Tramadol 50mg Apply Lidocaine Ointment 5% to area of back pain every 4 hours as needed. Follow up in clinic as scheduled. Sepsis Event Note - Focused Exam Vital Signs: Vital Signs Temp Pulse Resp BP Pulse Ox 06/20/19 10:23 98.1 F 88 16 125/83 98 Date Exam was Performed: 06/20/19 Time Exam was Performed: 10:46 - My Orders Last 24 Hours: My Active Orders 06/20/19 10:23 UA W/MICROSCOPIC [URIN] Urgent 06/20/19 10:46 Lidocaine 5% 15 gm TOP ONETIME ONE traMADol [Ultram] 100 mg PO ONETIME ONE - Assessment/Plan Last 24 Hours: My Active Orders 06/20/19 10:23 UA W/MICROSCOPIC [URIN] Urgent 06/20/19 10:46 Lidocaine 5% 15 gm TOP ONETIME ONE traMADol [Ultram] 100 mg PO ONETIME ONE I have read and agree with the documentation that has been completed regarding this visit. By signing this record, I attest that the documentation was completed in my physical presence and is an accurate record of the encounter.
== END 2019-06-20 11:19 | disposition home or self-care (01) ==
LOC: DL.ED 10:16
DX: M54.9 Dorsalgia, unspecified (principal); G89.29 Other chronic pain; R31.21 Asymptomatic microscopic hematuria; K21.9 Gastro-esophageal reflux disease without esophagitis; Z79.899 Other long term (current) drug therapy; Z88.8 Allergy status to other drugs, medicaments and biological substances
CPT/HCPCS: 81001; 99283; A9270

== ENCOUNTER 2019-06-29 05:19 | Day surgery (SDC) | payer MEDICAID, OTHER ==
[2019-06-29] MEDS ORDERED: fentaNYL 100 MCG/2 ML SDV IV ONE ×3 (05:20→06:30)
[2019-06-29] MEDS ORDERED: Midazolam 1 MG/ML 2 ML SDV IV ONE ×3 (05:20→06:31)
[2019-06-29] MEDS ORDERED: Sodium Chloride 0.9% 1,000 ML IV SCH (06:00)
[2019-06-29] MEDS ORDERED: Sodium Chloride 0.9% 10 ML Syringe FLUSH PRN (06:00)
[2019-06-29] MEDS ORDERED: Midazolam 1 MG/ML 2 ML SDV ONE (06:18)
[2019-06-29] MEDS ORDERED: fentaNYL 100 MCG/2 ML SDV ONE (06:19)
--- NOTE | 2019-06-29 08:22 | OR ---
DATE: 06/29/2019 PROCEDURE: Esophagogastroduodenoscopy and multiple pinch biopsies. INSTRUMENT USED: [id number]-HQ190 Olympus video panendoscope. PREMEDICATIONS: No oral or topical anesthesia used. Fentanyl 100 mcg intravenous, Versed 2 mg intravenous. Procedure was done under pulse oximetry, BP recording, and artificial flowers dyer. INDICATION: The patient with persistent longstanding abdominal pain, dyspepsia, episodes of vomiting, unexplained and not responsive to medical measures, on high-dose PPI. Esophagogastroduodenoscopy is performed for detection of any active erosive lesions, Soares esophagus and/or malignancy also under consideration, H pylori status to be determined, small bowel biopsies to be obtained for celiac disease if indicated, endoscopic hemostasis therapy if needed. PROCEDURE IN DETAIL: The scope was passed with ease. Adequate visualization of the esophagus was made from proximal to distal areas. No upper esophageal lesions identified. No distal esophageal stricture. No uphill or downhill esophageal varices. No Xochitl-Moss tear. No evidence of erosive esophagitis by Rippey criteria. No esophageal polyp or tumor mass identified. Z-line was seen at around 39 cm distal to the oral verge, configuration consistent with grade 1 by ZAP classification. No proximal gastric varices noted. Gastric fundus examination by retroflexion showed no polypoid lesions. No gastric ulcer, malignant mass, or vascular ectasia identified. Duodenal bulb showed no ulcer. Visualized second part of the duodenum was unremarkable. Multiple pinch biopsies, 4 in number, were taken from different areas of the second part of the duodenum and tissues were also obtained from the duodenal bulb at 9 o'clock and 12 o'clock positions, and sent for any histopathologic evidence of celiac disease. Multiple pinch biopsies were also obtained from the gastric antrum and proximal body and sent for PyloriTek test for H pylori and histopathology. No bleeding was noted from any of the visualized areas at the completion of examination. Photographs were taken of duodenal bulb, gastric antrum, fundus, and distal esophagus. IMPRESSION: Normal study. The patient tolerated the procedure well. [facility] /[id number]
[2019-06-29 10:55] VITALS: PULSE 63
[2019-06-29 10:57] VITALS: BP 121/63
--- NOTE | 2019-06-29 13:58 | LETTER ---
06/29/[address] [facility] [address] [place] [address] RE: TYREE SCHULTZ LUKAS : 1960 Dear Ms. Esparza: Kim Schultz had esophagogastroduodenoscopy done this morning and she tolerated the procedure well. I herewith send a copy of the endoscopy note and photographs for your review. Thank you. Sincerely, [facility] /[id number]
== END 2019-06-29 08:45 | disposition home or self-care (01) ==
LOC: DL.ENDO 05:19
PROVIDERS: ATTEND Internal Medicine Gastroenterology
DX: K29.50 Unspecified chronic gastritis without bleeding (principal); K21.9 Gastro-esophageal reflux disease without esophagitis; E78.5 Hyperlipidemia, unspecified; M19.90 Unspecified osteoarthritis, unspecified site; Z90.49 Acquired absence of other specified parts of digestive tract; Z88.8 Allergy status to other drugs, medicaments and biological substances
CPT/HCPCS: 43239; 87077; J2250; J3010; J7030

== ENCOUNTER 2019-07-17 05:36 | Day surgery (SDC) | payer MEDICAID, OTHER ==
[~2019-07-17 05:36] MED LIST: Sodium Chloride 0.9% 1,000 ML IV SCH
[2019-07-17] MEDS ORDERED: Midazolam 1 MG/ML 2 ML SDV IV ONE ×7 (05:37→07:08)
[2019-07-17] MEDS ORDERED: fentaNYL 100 MCG/2 ML SDV IV ONE ×7 (05:37→07:14)
[2019-07-17] MEDS ORDERED: fentaNYL 100 MCG/2 ML SDV ONE (06:08)
[2019-07-17] MEDS ORDERED: Midazolam 1 MG/ML 2 ML SDV ONE (06:08)
[2019-07-17] MEDS ORDERED: Sodium Chloride 0.9% 1,000 ML IV SCH (06:30)
[2019-07-17 09:24] VITALS: BP 107/49; PULSE 71
--- NOTE | 2019-07-17 13:11 | OR ---
DATE: 07/17/2019 PROCEDURE: Total colonoscopy. INSTRUMENT USED: [id number]-[id number] Olympus video colonoscope. PREMEDICATIONS: Fentanyl 200 mcg intravenous, Versed 4 mg intravenous. The procedure was done under pulse oximetry, BP recording, and schedule planning manager. The patient with progressive constipation and abdominal pain, unexplained and not responsive to medical measures, on long-term stool softeners. Colonoscopic examination is done for detection of any polypoid lesions and removal, endoscopic hemostasis therapy if needed. DESCRIPTION OF PROCEDURE: Initial rectal exam was unremarkable. Rigid anoscopy was normal. The colonoscope was passed with ease up to the ileocecal area. Photographs were taken of the normal-appearing cecum identified by landmarks of appendiceal orifice and double-bulged ileocecal folds. No bleeding was noted from any of the visualized areas at the commencement of the examination. The colon was found to be tortuous and redundant. The bowel preparation was found to be adequate, Hadley scale 2 in all the regions, total score of 6. No stricture. No vascular ectasia. No large isolated ulcerations seen. No evidence of diffuse inflammatory bowel disease in the form of friability, contact bleeding, or ulcerations. No polyp or tumor mass identified. Probing the proximal sides of folds and flexures using adequate distention and clearing up the stool material, withdrawal of the scope was made. Cecum to rectum time over 6 minutes. No bleeding was noted from any of the visualized areas at the completion of examination. IMPRESSION: Normal study. The patient tolerated the procedure well. [facility] /[id number]
--- NOTE | 2019-07-18 08:33 | LETTER ---
07/17/2019 Abby Sebastian NP [facility] [address] [place] [address] RE: ANTOINE TYREEJACOB GAYTAN : 1960 Dear. Ms. Sebastian: Tyree Camacho had colonoscopic examination done this morning and she tolerated the procedure well. I herewith send a copy of the endoscopy note and photographs for your review. Thank you. Sincerely, [facility] /[id number]
== END 2019-07-17 09:28 | disposition home or self-care (01) ==
LOC: DL.ENDO 05:36
PROVIDERS: ATTEND Internal Medicine Gastroenterology
DX: Q43.8 Other specified congenital malformations of intestine (principal); E78.5 Hyperlipidemia, unspecified; K21.9 Gastro-esophageal reflux disease without esophagitis; M54.5 Low back pain; M19.90 Unspecified osteoarthritis, unspecified site; F17.210 Nicotine dependence, cigarettes, uncomplicated; Z79.82 Long term (current) use of aspirin; Z88.8 Allergy status to other drugs, medicaments and biological substances; Z90.49 Acquired absence of other specified parts of digestive tract; Z90.710 Acquired absence of both cervix and uterus; Z98.890 Other specified postprocedural states
CPT/HCPCS: 45378; J2250; J3010; J7030; G0121

== ENCOUNTER 2020-10-28 06:13 | Emergency (ER) | payer MEDICAID ==
[2020-10-28 06:17] VITALS: BP 126/63; PULSE 111
[2020-10-28] MEDS ORDERED: Sodium Chloride 0.9% 1,000 ML IV ONE (06:24)
[2020-10-28] MEDS ORDERED: Ondansetron 4 MG/2 ML SDV IVPUSH ONE (06:24)
[2020-10-28] MEDS ORDERED: HYDROmorphone 0.5 MG/0.5 ML Syringe IVPUSH ONE (06:25)
--- NOTE | 2020-10-28 06:26 | EDM.PDOC ---
"<JoeCoby hernandez Randy - Last Filed: 10/28/20 06:12> ED HPI GENERAL MEDICAL PROBLEM - General Chief Complaint: Abdominal Pain Stated Complaint: AMBULANCE Time Seen by Provider: 10/28/20 06:12 Source of Information: Reports: Patient, RN History Limitations: Reports: No Limitations - History of Present Illness INITIAL COMMENTS - FREE TEXT/NARRATIVE: ED with c/o upper right sided abdominal pain with vomiting, approximately 8 times since 10pm. Pain intermittent. Chills no fever. No urinary sx. Last BM on Tuesday, hx constipation in past. Prior cholecystectomy. No other family members ill. No prior known exposure to COVID. Has received vaccine. - Related Data Allergies Allergy/AdvReac Type Severity Reaction Status Date / Time dextrose [From Metamucil] Allergy Respiratory Verified 07/17/19 06:08 Distress psyllium husk Allergy Respiratory Verified 07/17/19 06:08 [From Metamucil] Distress psyllium seed Allergy Respiratory Verified 07/17/19 06:08 [From Metamucil] Distress sucrose [From Metamucil] Allergy Respiratory Verified 07/17/19 06:08 Distress Home Meds: Home Meds Cholecalciferol (Vitamin D3) [Vitamin D3] 1,000 units PO DAILY 12/28/13 [History] Docusate Sodium [Colace] 50 mg PO BID PRN 12/28/13 [History] traMADol [Ultram] 50 - 100 mg PO Q8HR PRN 12/28/13 [History] Acetaminophen 650 mg PO Q4H PRN 11/29/18 [History] Diclofenac Sodium [Voltaren 1% Gel] 1 dose TRDERM TID PRN 04/30/19 [History] Omeprazole 20 mg PO BID 04/30/19 [History] Magnesium Oxide [Magnesium] 400 mg PO BEDTIME 06/28/19 [History] Simethicone 80 mg PO ASDIRECTED 06/28/19 [History] polyethylene glycoL 3350 [MiraLAX] 17 gm PO DAILY 06/28/19 [History] valACYclovir [Valtrex] 1 gm PO BID 06/28/19 [History] Alendronate Sodium [Fosamax] 70 mg PO ASDIRECTED 07/16/19 [History] Past Medical History HEENT History: Reports: Impaired Vision Other HEENT History: wears glasses Cardiovascular History: Reports: High Cholesterol Respiratory History: Reports: None Gastrointestinal History: Reports: Bowel Obstruction, GERD Genitourinary History: Reports: None 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 Musculoskeletal History: Reports: Back Pain, Chronic, Osteoarthritis Neurological History: Reports: None Psychiatric History: Reports: None Endocrine/Metabolic History: Reports: None Hematologic History: Reports: None Immunologic History: Reports: None Oncologic (Cancer) History: Reports: None Dermatologic History: Reports: Other (See Below) Other Dermatologic History: dry skin - Infectious Disease History Infectious Disease History: Reports: Helicobacter Pylori - Past Surgical History Head Surgeries/Procedures: Reports: None HEENT Surgical History: Reports: None Cardiovascular Surgical History: Reports: None Respiratory Surgical History: Reports: None GI Surgical History: Reports: Cholecystectomy, EGD Female Surgical History: Reports: Hysterectomy, Other (See Below) Other Female Surgeries/Procedures: bladder surgery Neurological Surgical History: Reports: None Musculoskeletal Surgical History: Reports: None Social & Family History - Family History Family Medical History: No Pertinent Family History - Caffeine Use Caffeine Use: Reports: Coffee Caffeine Use Comment: 2 cups daily - Living Situation & Occupation Living situation: Reports: , with Spouse Occupation: Employed ED ROS GENERAL - Review of Systems Review Of Systems: Comprehensive ROS is negative, except as noted in HPI. ED EXAM, GI/ABD - Physical Exam Exam: See Below Exam Limited By: No Limitations General Appearance: Alert, Mild Distress Eyes: Bilateral: EOMI Ears: Normal External Exam Nose: Normal Inspection Throat/Mouth: Normal Inspection Head: Atraumatic, Normocephalic Neck: Normal Inspection Respiratory/Chest: No Respiratory Distress, Lungs Clear, Normal Breath Sounds Cardiovascular: Normal Peripheral Pulses, Regular Rate, Rhythm GI/Abdominal Exam: Distended (mildupper), Guarding, Tender, Abnormal Bowel Sounds (hyperactive) Back Exam: Normal Inspection Extremities: Normal Inspection Neurological: Alert, Oriented, Normal Cognition Psychiatric: Normal Affect Skin Exam: Warm, Dry, Intact, Normal Color Departure - Departure Disposition: Home, Self-Care 01 Clinical Impression: Gastroenteritis Constipated Qualifiers: Constipation type: other constipation type Qualified Code(s): K59.09 - Other constipation - Discharge Information Instructions: Viral Gastroenteritis, Adult, [id number], Constipation, Adult Forms: ED Department Discharge Additional Instructions: Rx: Zofran 4mg Rx: Bentyl 20mg Clear liquid diet until nausea, vomiting, and pain resolves, then advance to soft bland diet as tolerated. Follow up in clinic in 3 to 4 days for recheck. <Justin Dawson - Last Filed: 10/28/20 09:25> ED HPI GENERAL MEDICAL PROBLEM - General Source of Information: Reports: Patient, Old Records, Provider (Coby HARRIS), RN, RN Notes Reviewed History Limitations: Reports: No Limitations - History of Present Illness Onset: Gradual Onset Date: 10/27/20 Duration: Constant Location: Reports: Abdomen Quality: Reports: Ache, Other (Cramping) Severity: Moderate Improves with: Reports: None Worsens with: Reports: Eating Associated Symptoms: Reports: No Other Symptoms Right Upper Abdomen Pain Score (Numeric/FACES): 8 ED EXAM, GI/ABD - Physical Exam Exam: See Below Exam Limited By: No Limitations General Appearance: Alert, WD/WN, No Apparent Distress, Obese Eyes: Bilateral: Normal Appearance Nose: Normal Inspection Throat/Mouth: Normal Inspection, Normal Lips, Normal Voice, No Airway Compromise Head: Atraumatic, Normocephalic Neck: Normal Inspection, Non-Tender Respiratory/Chest: No Respiratory Distress, Lungs Clear, Chest Non-Tender Cardiovascular: Normal Peripheral Pulses, Regular Rate, Rhythm, No Edema GI/Abdominal Exam: Normal Bowel Sounds, Soft, No Organomegaly, No Distention, Tender (RUQ, epigastric region). No: Guarding, Rigid, Rebound (Female) Exam: Deferred Rectal (Female) Exam: Deferred Back Exam: Normal Inspection. No: CVA Tenderness (L), CVA Tenderness (R) Extremities: Normal Inspection Neurological: Alert, Oriented, CN II-XII Intact, Normal Cognition, Normal Gait, No Motor/Sensory Deficits Psychiatric: Normal Affect, Normal Mood Skin Exam: Warm, Dry, Intact, Normal Color, No Rash Course - Vital Signs Last Recorded V/S: Last Vital Signs Temp 99.6 F 10/28/20 06:13 Pulse 111 H 10/28/20 06:13 Resp 20 10/28/20 06:13 BP 126/63 10/28/20 06:13 Pulse Ox 96 10/28/20 06:13 - Orders/Labs/Meds Orders: Active Orders 24 hr Category Date Time Status CULTURE BLOOD [BC] Stat Lab 10/28/20 06:10 Received UA RFX FEI AND CULT IF INDIC [URIN] Stat Lab 10/28/20 06:23 Ordered Labs: Laboratory Tests 10/28/20 10/28/20 10/28/20 Range/Units 06:10 06:10 06:10 WBC 16.4 H (5.0-10.0) 10^3/uL RBC 5.53 H (4.2-5.4) 10^6/uL Hgb 16.4 H D (12.0-16.0) g/dL Hct 49.3 H (37.0-47.0) % MCV 89.2 (80-100) fL MCH 29.7 (27.0-34.0) pg MCHC 33.3 (33.0-35.0) g/dL Plt Count 286 (150-450) 10^3/uL Neut % (Auto) 87.2 H (42.2-75.2) % Lymph % (Auto) 6.1 L (20.5-50.1) % [place] % (Auto) 4.5 (2-8) % Eos % (Auto) 2.0 (1.0-3.0) % Baso % (Auto) 0.2 (0.0-1.0) % Sodium 141 (136-145) mmol/L Potassium 3.9 (3.5-5.1) mmol/L Chloride 103 (98-107) mmol/L Carbon Dioxide 25 (21-32) mmol/L Anion Gap 16.9 H (7-13) mEq/L BUN 20 H (7-18) mg/dL Creatinine 0.89 (0.55-1.02) mg/dL Est Cr Clr Drug Dosing 57.32 mL/min Estimated GFR (MDRD) > 60 BUN/Creatinine Ratio 22.5 (No establ ref range) Glucose 160 H (70-99) mg/dL Lactic Acid 2.0 (0.4-2.0) mmol/L Calcium 8.9 (8.5-10.1) mg/dL Total Bilirubin 0.6 (0.2-1.0) mg/dL AST 17 (15-37) U/L ALT 47 (14-59) U/L Alkaline Phosphatase 117 H (46-116) U/L Total Protein 8.3 H (6.4-8.2) g/dL Albumin 3.9 (3.4-5.0) g/dL Globulin 4.4 Albumin/Globulin Ratio 0.9 Amylase 70 (25-115) U/L Lipase 179 (73-393) U/L SARS-CoV-2 RNA (JULIUS) (NEGATIVE) 10/28/20 Range/Units 07:18 WBC (5.0-10.0) 10^3/uL RBC (4.2-5.4) 10^6/uL Hgb (12.0-16.0) g/dL Hct (37.0-47.0) % MCV (80-100) fL MCH (27.0-34.0) pg MCHC (33.0-35.0) g/dL Plt Count (150-450) 10^3/uL Neut % (Auto) (42.2-75.2) % Lymph % (Auto) (20.5-50.1) % [place] % (Auto) (2-8) % Eos % (Auto) (1.0-3.0) % Baso % (Auto) (0.0-1.0) % Sodium (136-145) mmol/L Potassium (3.5-5.1) mmol/L Chloride (98-107) mmol/L Carbon Dioxide (21-32) mmol/L Anion Gap (7-13) mEq/L BUN (7-18) mg/dL Creatinine (0.55-1.02) mg/dL Est Cr Clr Drug Dosing mL/min Estimated GFR (MDRD) BUN/Creatinine Ratio (No establ ref range) Glucose (70-99) mg/dL Lactic Acid (0.4-2.0) mmol/L Calcium (8.5-10.1) mg/dL Total Bilirubin (0.2-1.0) mg/dL AST (15-37) U/L ALT (14-59) U/L Alkaline Phosphatase (46-116) U/L Total Protein (6.4-8.2) g/dL Albumin (3.4-5.0) g/dL Globulin Albumin/Globulin Ratio Amylase (25-115) U/L Lipase (73-393) U/L SARS-CoV-2 RNA (JULIUS) Negative (NEGATIVE) Meds: Medications Discontinued Medications Generic Name Dose Route Start Last Admin Trade Name Freq PRN Reason Stop Dose Admin Bisacodyl 10 mg 10/28/20 08:23 Bisacodyl 5 Mg Tab PO 10/28/20 08:24 ONETIME ONE Famotidine 20 mg 10/28/20 08:22 10/28/20 08:47 Famotidine 20 Mg/2 Ml Sdv IVPUSH 10/28/20 08:23 20 mg ONETIME ONE Administration Hydromorphone HCl 0.5 mg 10/28/20 06:25 10/28/20 06:38 Hydromorphone 0.5 Mg/0.5 Ml Syringe IVPUSH 10/28/20 06:26 0.5 mg ONETIME ONE Administration Sodium Chloride 1,000 mls @ 500 mls/hr 10/28/20 06:24 10/28/20 06:37 Normal Saline IV 10/28/20 08:23 500 mls/hr .BOLUS ONE Administration Piperacillin Sod/Tazobactam 100 mls @ 200 mls/hr 10/28/20 08:24 10/28/20 08:47 Sod 3.375 gm/ Sodium Chloride IV 10/28/20 08:53 200 mls/hr ONETIME ONE Administration Iopamidol 100 ml 10/28/20 07:15 10/28/20 07:44 Iopamidol 612 Mg/Ml 100 Ml Bottle IVPUSH 10/28/20 07:16 75 ml ONETIME ONE Administration Lactulose 20 gm 10/28/20 08:23 Lactulose Soln 10 Gm/15 Ml 30 Ml Ud Cup PO 10/28/20 08:24 ONETIME ONE Ondansetron HCl 4 mg 10/28/20 06:24 10/28/20 06:37 Ondansetron 4 Mg/2 Ml Sdv IVPUSH 10/28/20 06:25 4 mg ONETIME ONE Administration - Radiology Interpretation Free Text/Narrative:: [facility] [place] [facility] Final Radiology Report Call: [phone] assistance Online chat: [email or web address] Name: TYREE SCHULTZ Age: 60Years F Date: 10/28/2020 SSN: -- : 1960 Study: CT ABDOMEN PELVIS W CONT Requesting Physician: JUSTIN DAWSON Images: [id number] Addl Studies: Provided Clinical History: Right sided abdominal pain, WBC 16,400 Contrast: With Contrast Medium: ISOVUE 300 Contrast Amount: 75 mL Contrast Method: Intravenous (IV) Page 1 of 2 PROCEDURE INFORMATION: Exam: CT Abdomen And Pelvis With Contrast Exam date and time: 10/28/2020 7:36 AM Age: 60 years old Clinical indication: Abdominal pain; Prior surgery; Surgery date: 6+ months; Surgery type: Cholecystectomy, hysterectomy. ; Patient HX: HX: Sbo; Additional info: Right sided abdominal pain, wbc 16,400 TECHNIQUE: Imaging protocol: Computed tomography of the abdomen and pelvis with contrast. Radiation optimization: All CT scans at this facility use at least one of these dose optimization techniques: automated exposure control; mA and/or kV adjustment per patient size (includes targeted exams where dose is matched to clinical indication); or iterative reconstruction. Contrast material: ISOVUE 300; Contrast volume: 75 ml; Contrast route: INTRAVENOUS (IV); COMPARISON: CT Abdomen Pelvis w Cont 08/10/2019 10:36 AM FINDINGS: Liver: Diffuse fatty infiltration. No focal lesions. Gallbladder and bile ducts: Prior cholecystectomy again noted. Normal bile ducts. Pancreas: Normal. No ductal dilation. Spleen: Normal. No splenomegaly. Adrenal glands: Normal. No mass. Kidneys and ureters: Normal. No hydronephrosis. Stomach and bowel: Mucosal thickening of the stomach and proximal duodenum. Mucosal edema in the jejunum. No evidence of bowel obstruction. Appendix: No evidence for appendicitis. Normal diameter. No inflammation. Intraperitoneal space: Unremarkable. No free air. No significant fluid collection. TYREE SCHULTZ | Final Radiology Report CONFIDENTIALITY STATEMENT This report is intended only for use by the referring physician, and only in accordance with law. If you received this in error, call [phone]. Page 2 of 2 Vasculature: Unremarkable. No abdominal aortic aneurysm. Lymph nodes: Unremarkable. No enlarged lymph nodes. Urinary bladder: Unremarkable as visualized. Reproductive: Unremarkable as visualized. Bones/joints: Unremarkable. No acute fracture. Soft tissues: Unremarkable. IMPRESSION: 1. Mucosal thickening in the stomach, duodenum, and jejunum is consistent with a nonspecific gastroenteritis. This may represent peptic ulcer disease or viral gastroenteritis. Inflammatory bowel disease is less likely but also possible. 2. Fatty infiltration of the liver. Thank you for allowing us to participate in the care of your patient. Dictated and Authenticated by: Devendra Renee MD 10/28/2020 8:10 AM Central Time ([place] & [place]) Departure - Departure Time of Disposition: 09:24 Condition: Good - Discharge Information *PRESCRIPTION DRUG MONITORING PROGRAM REVIEWED*: Not Applicable *COPY OF PRESCRIPTION DRUG MONITORING REPORT IN PATIENT VELASQUEZ: Not Applicable Sepsis Event Note (ED) - Focused Exam Vital Signs: Vital Signs Temp Pulse Resp BP Pulse Ox 10/28/20 06:13 99.6 F 111 H 20 126/63 96"
[2020-10-28 06:51] LABS: ANION GAP 16.9 mEq/L (7-13); CHLORIDE,CL 103 mmol/L (98-107); SODIUM,NA 141 mmol/L (136-145)
[2020-10-28] MEDS ORDERED: Iopamidol 612 MG/ML 100 ML Bottle IVPUSH ONE (07:15)
--- NOTE | 2020-10-28 08:11 | CT ---
PROCEDURE INFORMATION: Exam: CT Abdomen And Pelvis With Contrast Exam date and time: 10/28/2020 7:36 AM Age: 60 years old Clinical indication: Abdominal pain; Prior surgery; Surgery date: 6+ months; Surgery type: Cholecystectomy, hysterectomy. ; Patient HX: HX: Sbo; Additional info: Right sided abdominal pain, wbc 16,400 TECHNIQUE: Imaging protocol: Computed tomography of the abdomen and pelvis with contrast. Radiation optimization: All CT scans at this facility use at least one of these dose optimization techniques: automated exposure control; mA and/or kV adjustment per patient size (includes targeted exams where dose is matched to clinical indication); or iterative reconstruction. Contrast material: ISOVUE 300; Contrast volume: 75 ml; Contrast route: INTRAVENOUS (IV); COMPARISON: CT Abdomen Pelvis w Cont 08/10/2019 10:36 AM FINDINGS: Liver: Diffuse fatty infiltration. No focal lesions. Gallbladder and bile ducts: Prior cholecystectomy again noted. Normal bile ducts. Pancreas: Normal. No ductal dilation. Spleen: Normal. No splenomegaly. Adrenal glands: Normal. No mass. Kidneys and ureters: Normal. No hydronephrosis. Stomach and bowel: Mucosal thickening of the stomach and proximal duodenum. Mucosal edema in the jejunum. No evidence of bowel obstruction. Appendix: No evidence for appendicitis. Normal diameter. No inflammation. Intraperitoneal space: Unremarkable. No free air. No significant fluid collection. Vasculature: Unremarkable. No abdominal aortic aneurysm. Lymph nodes: Unremarkable. No enlarged lymph nodes. Urinary bladder: Unremarkable as visualized. Reproductive: Unremarkable as visualized. Bones/joints: Unremarkable. No acute fracture. Soft tissues: Unremarkable. IMPRESSION: 1. Mucosal thickening in the stomach, duodenum, and jejunum is consistent with a nonspecific gastroenteritis. This may represent peptic ulcer disease or viral gastroenteritis. Inflammatory bowel disease is less likely but also possible. 2. Fatty infiltration of the liver.
[2020-10-28] MEDS ORDERED: Famotidine 20 MG/2 ML SDV IVPUSH ONE (08:22)
[2020-10-28] MEDS ORDERED: Bisacodyl 5 MG Tab PO ONE (08:23)
[2020-10-28] MEDS ORDERED: Lactulose Soln 10 GM/15 ML 30 ML UD Cup PO ONE (08:23)
[2020-10-28] MEDS ORDERED: Piperacillin/Tazobactam 3.375 GM in Sodium Chloride 0.9% 100 ML IV ONE (08:24)
== END 2020-10-28 09:30 | disposition home or self-care (01) ==
LOC: DL.ED 06:13
DX: K59.09 Other constipation (principal); K52.9 Noninfective gastroenteritis and colitis, unspecified; K21.9 Gastro-esophageal reflux disease without esophagitis; Z88.8 Allergy status to other drugs, medicaments and biological substances; Z91.048 Other nonmedicinal substance allergy status; Z79.899 Other long term (current) drug therapy; Z20.822 Contact with and (suspected) exposure to COVID-19
CPT/HCPCS: 36415; 74177; 80053; 82150; 83605; 83690; 85025; 87040; 87635; 96365; 96375; 99283; 99285; A9270; J1170; J2405; J2543; J3490; J7030; Q9967; U0002

== ENCOUNTER 2022-05-03 17:51 | Emergency (ER) | payer MEDICAID ==
[2022-05-03 18:59] VITALS: BP 143/73; PULSE 68
[2022-05-03 20:14] LABS: ANION GAP 11.6 mEq/L (7-13)
== END 2022-05-03 20:37 | disposition home or self-care (01) ==
LOC: DL.ED 17:51
DX: M79.662 Pain in left lower leg (principal); M62.838 Other muscle spasm; E78.00 Pure hypercholesterolemia, unspecified; K21.9 Gastro-esophageal reflux disease without esophagitis; Z88.8 Allergy status to other drugs, medicaments and biological substances; Z91.011 Allergy to milk products; Z79.899 Other long term (current) drug therapy
CPT/HCPCS: 36415; 80053; 83735; 85025; 85379; 99283

== ENCOUNTER 2023-10-22 18:35 | Emergency (ER) | payer MEDICARE, MEDICAID ==
[2023-10-22 19:03] VITALS: BP 143/67; PULSE 81
[2023-10-22] MEDS: Sodium Chloride 0.9% 10 ML Syringe FLUSH PRN (19:40)
[2023-10-22 19:45] LABS: BASOPHILS PERCENT AUTO 0.4 % (0.0-1.0); HEMATOCRIT 39.1 % (37.0-47.0); MEAN CORPUSCULAR HEMOGLOBIN 30.4 pg (27.0-34.0); MEAN CORPUSCULAR HGB CONC 33.2 g/dL (33.0-35.0); MEAN CORPUSCULAR VOLUME 91.4 fL (80-100); MONOCYTES PERCENT AUTO 10.8 % (2-8); NEUTROPHILS PERCENT AUTO 53.8 % (42.2-75.2); PLATELET COUNT,PLT 217 10^3/uL (150-450); RED BLOOD CELL COUNT 4.28 10^6/uL (4.2-5.4); WHITE BLOOD CELL COUNT,WBC 5.2 10^3/uL (5.0-10.0)
[2023-10-22 19:46] LABS: APPEARANCE,URINE CLEAR (CLEAR); BILIRUBIN,URINE SMALL (NEGATIVE); COLOR,URINE YELLOW (YELLOW); GLUCOSE,URINE NEGATIVE (NEGATIVE); KETONES,URINE TRACE (NEGATIVE); LEUKOCYTE ESTERASE,URINE NEGATIVE (NEGATIVE); NITRITE,URINE NEGATIVE (NEGATIVE); OCCULT BLOOD,URINE SMALL (NEGATIVE); PROTEIN,URINE NEGATIVE (NEGATIVE)
[2023-10-22 19:54] LABS: ALBUMIN 3.3 g/dL (3.4-5.0); ANION GAP 12.9 mEq/L (7-13); BILIRUBIN TOTAL 1.1 mg/dL (0.2-1.0); BUN/CREATININE RATIO 15.1 (No establ ref range); CALCIUM 8.2 mg/dL (8.5-10.1); CREATININE 0.86 mg/dL (0.55-1.02); EST CRCL DRUG DOSING (CG) 61.87 mL/min; POTASSIUM,K 3.9 mmol/L (3.5-5.1); PROTEIN TOTAL,TP 7.8 g/dL (6.4-8.2)
[2023-10-22 19:55] LABS: BACTERIA,URINE FEW /HPF (0-FEW/HPF); EPITHELIAL CELLS,URINE FEW /HPF (NOT SEEN); MUCUS,URINE FEW /LPF (NOT SEEN); WBC,URINE 0-5 /HPF (0-5/HPF)
[2023-10-22 19:55] LABS: A/G RATIO 0.73
[2023-10-22] MEDS: Ondansetron 4 MG/2 ML SDV IVPUSH ONE (19:56)
[2023-10-22] MEDS ORDERED: Naloxone 2 MG/2 ML Syringe IVPUSH PRN (20:35)
[2023-10-22] MEDS: Iopamidol 612 MG/ML 100 ML Bottle IVPUSH ONE (20:44)
[2023-10-22] MEDS: Lactated Ringers 1,000 ML IV ONE (20:49)
[2023-10-22] MEDS: Morphine 2 MG/ML SYRINGE IVPUSH ONE ×2 (20:49→22:25)
== END 2023-10-22 22:38 ==
LOC: DL.ED 18:35
DX: K57.10 Diverticulosis of small intestine without perforation or abscess without bleeding (principal); K59.09 Other constipation; N95.2 Postmenopausal atrophic vaginitis; K83.8 Other specified diseases of biliary tract; R74.8 Abnormal levels of other serum enzymes; R94.5 Abnormal results of liver function studies; R82.2 Biliuria; N39.3 Stress incontinence (female) (male); K21.9 Gastro-esophageal reflux disease without esophagitis; F17.210 Nicotine dependence, cigarettes, uncomplicated; Z79.899 Other long term (current) drug therapy; Z88.8 Allergy status to other drugs, medicaments and biological substances; Z91.018 Allergy to other foods; Z90.49 Acquired absence of other specified parts of digestive tract
CPT/HCPCS: 36415; 74177; 80053; 81001; 83690; 85025; 96374; 96375; 96376; 99285; J2270; J2405; J7120; Q9967; J3490